=== PATIENT | male | born 1990 | race African-American/Black ===

== ENCOUNTER 2021-08-03 21:30 | Emergency (ER) | payer BC ==
--- NOTE | 2021-08-03 21:59 | NUR ---
PATIENT LEFT WITHOUT BEING SEEN BY DR. RODNEY. NO FURTHER CARE PROVIDED FOR PATIENT.
== END 2021-08-03 21:59 | disposition left against medical advice (07) ==
LOC: MED 21:45
DX: Z53.21 Procedure and treatment not carried out due to patient leaving prior to being seen by health care provider (principal)

== ENCOUNTER 2022-09-12 01:35 | Emergency (ER) | payer BC ==
[~2022-09-12] VITALS: Ht 165.1 cm; Wt 68.0 kg
[2022-09-12 01:52] VITALS: BP 115/76
--- NOTE | 2022-09-12 01:58 | NUR ---
SWABBED AND PLACED IN LOBBY
[2022-09-12] MEDS ORDERED: IBUP-2213 PO (03:55)
[2022-09-12] MEDS ORDERED: AMOX-999 PO (03:55)
[2022-09-12 04:23] VITALS: BP 118/72
== END 2022-09-12 04:23 | disposition home or self-care (01) ==
LOC: MED 01:35
DX: J02.9 Acute pharyngitis, unspecified (principal)
CPT/HCPCS: 87081; 99283